=== PATIENT | male | born 1975 | race Caucasian/White ===

== ENCOUNTER 2016-09-27 11:22 | Emergency (ER) | payer MEDICAID ==
[2016-09-27 11:36] VITALS: BP 151/88
== END 2016-09-27 13:43 | disposition home or self-care (01) ==
LOC: ED 11:22
DX: S01.01XA Laceration without foreign body of scalp, initial encounter (principal); X58.XXXA Exposure to other specified factors, initial encounter; Y93.89 Activity, other specified; Y92.89 Other specified places as the place of occurrence of the external cause; Y99.8 Other external cause status
CPT/HCPCS: 90715

== ENCOUNTER 2016-10-04 13:12 | Emergency (ER) | payer MEDICAID ==
[2016-10-04 13:27] VITALS: BP 134/89
== END 2016-10-04 14:06 | disposition home or self-care (01) ==
LOC: ED 13:12
DX: S01.81XD Laceration without foreign body of other part of head, subsequent encounter (principal); X58.XXXD Exposure to other specified factors, subsequent encounter; Y99.8 Other external cause status; Y92.89 Other specified places as the place of occurrence of the external cause

== ENCOUNTER 2017-08-29 09:26 | Emergency (ER) | payer MEDICAID ==
[~2017-08-29] VITALS: Ht 167.6 cm; Wt 95.2 kg
[2017-08-29 09:32] VITALS: BP 156/94; Ht 167.6 cm; Wt 95.2 kg
== END 2017-08-29 11:26 | disposition home or self-care (01) ==
LOC: ED 09:26
DX: M10.071 Idiopathic gout, right ankle and foot (principal)
CPT/HCPCS: J1885

== ENCOUNTER 2017-12-24 09:17 | Emergency (ER) | payer MEDICAID ==
[~2017-12-24] VITALS: Ht 175.3 cm; Wt 93.0 kg
[2017-12-24 09:24] VITALS: Ht 175.3 cm; Wt 93.0 kg
[2017-12-24 10:17] LABS: CALCIUM 8.5 mg/dL (8.5-10.1); CHLORIDE SERUM 105 mmol/L (98-107); CREATININE SERUM 0.7 mg/dL (0.7-1.3); GFR1 > 60 mL/min; GLUCOSE SERUM 126 mg/dL (74-106); POTASSIUM SERUM 4.2 mmol/L (3.5-5.1); SODIUM SERUM 139 mmol/L (136-145)
[2017-12-24 10:22] LABS: ALBUMIN 3.4 g/dL (3.4-5.0); ALKALINE PHOSPHATASE 94 U/L (46-116); ALT/SGPT 32 U/L (16-63); AST/SGOT 14 U/L (15-37); BILIRUBIN TOTAL 1.03 mg/dL (0.20-1.00); TOTAL PROTEIN, SERUM 7.8 g/dL (6.4-8.2)
[2017-12-24 11:11] VITALS: BP 126/71
== END 2017-12-24 11:11 | disposition home or self-care (01) ==
LOC: ED 09:17
PROVIDERS: Emergency Medicine
DX: M10.9 Gout, unspecified (principal)